=== PATIENT | male | born 1975 | race Caucasian/White ===

== ENCOUNTER 2018-12-04 23:31 | Inpatient (IN) | payer OTHER ==
[~2018-12-04] VITALS: Ht 177.8 cm; Wt 93.4 kg
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
--- NOTE | ~2018-12-04 | PROC ---
[address] [address] PROCEDURE REPORT Name: DELBERT ANGUIANO Room: [address] ADM IN M.R.#: [id number] Admission: 12/05/18 Attend Phys: Hellen Johns MD Discharge: Date of : 71 Report #: [id number] THIS REPORT FOR: //name// For GI report, please see the provation report in perceptive 7. By: [id number] Records Staff [facility] /SHANE
[~2018-12-04 23:31] MED LIST: ACETAMINOPHEN-1 EAC1 PO; AMOXICILLIN500 M1 PO; AUGMENTIN 875875 M1 PO; BACTRIM DS TAB1 EACH PO; COMPAZINE10 MG PO; DARVOCET-N 1001 EACH PO; FLEXERIL PO; IBUPROFEN 800800 MG PO; LAXACIN TABLET1 EACH PO; MEDROLDOSEPACK PO; MOBIC7.5 M1 PO; NOHOMEMEDICATIONS; NORCO 5-325 TA1 EACH PO; PERCOCET 5-3251 EACH PO; ROBAXIN 750 MG750 M1 PO; ROBAXIN500 MG PO; STOOL SOFTENER1 EAC2 PO; ZOFRAN4 MG PO; ZPAK PO
[2018-12-04 23:42] VITALS: BP 152/76
[2018-12-05] VITALS (8 sets, daily range): BP systolic 111–164; BP diastolic 71–92
[2018-12-05 00:34] LABS: HEMATOCRIT 22.5 % (42.0-52.0); MCH 17.6 pg (26.0-34.0); MCHC 29.1 g/dL (28.0-37.0); MCV 60.3 fL (80.0-100.0); MPV 8.5 fl. (7.2-11.1); NUCLEATED RBCS 0 /100WBC; PLATELET COUNT* 415 thou/uL (150-400); RBC 3.74 mil/uL (4.50-6.00); RDW-CV 20.6 % (10.5-14.5); WBC 12.4 thou/uL (4.0-11.0)
[2018-12-05 00:37] LABS: HEMOGLOBIN 6.6 gm/dL (14.0-18.0)
[2018-12-05 00:46] LABS: CALCIUM 8.7 mg/dL (8.5-10.1); CREATININE 1.3 mg/dL (0.6-1.3); POTASSIUM 4.1 mmol/L (3.5-5.1)
[2018-12-05 00:51] LABS: ALBUMIN 3.1 g/dL (3.4-5.0); TOTAL BILIRUBIN 0.3 mg/dL (<0.1-1.0); TOTAL PROTEIN 7.4 g/dL (6.4-8.2)
[2018-12-05 01:23] LABS: HEMATOCRIT 22.4 % (42.0-52.0); MCH 17.6 pg (26.0-34.0); MCHC 29.1 g/dL (28.0-37.0); MCV 60.5 fL (80.0-100.0); MPV 8.6 fl. (7.2-11.1); NUCLEATED RBCS 0 /100WBC; PLATELET COUNT* 439 thou/uL (150-400); RBC 3.71 mil/uL (4.50-6.00); RDW-CV 20.8 % (10.5-14.5); WBC 13.6 thou/uL (4.0-11.0)
[2018-12-05 01:27] LABS: HEMOGLOBIN 6.5 gm/dL (14.0-18.0)
[2018-12-05 01:32] LABS: ABSOLUTE EOSINOPHILS 0.2 thou/uL (0.0-0.7); ABSOLUTE LYMPHOCYTES 1.6 thou/uL (0.8-5.3); ABSOLUTE MONOCYTES 1.2 thou/uL (0.0-1.2); ABSOLUTE NEUTROPHILS 9.3 thou/uL (1.6-8.1); ANISOCYTOSIS 2+; HYPOCHROMASIA 3+; MICROCYTES 3+; PLATELET ESTIMATE INCREASED
[2018-12-05 01:33] LABS: OVALOCYTES Occasional
[2018-12-05 02:20] LABS: ABSOLUTE BASOPHILS 0.1 thou/uL (0.0-0.2); ABSOLUTE EOSINOPHILS 0.1 thou/uL (0.0-0.7); ABSOLUTE MONOCYTES 1.1 thou/uL (0.0-1.2); ABSOLUTE NEUTROPHILS 10.2 thou/uL (1.6-8.1)
[2018-12-05 02:21] LABS: ANISOCYTOSIS 2+; HYPOCHROMASIA 3+; MICROCYTES 3+; PLATELET ESTIMATE INCREASED
[2018-12-05 02:22] LABS: OVALOCYTES Occasional
--- NOTE | 2018-12-05 05:09 | NUR ---
PT ARRIVED TO ROOM AT 0400. PT TEARFUL AND ANXIOUS BECAUSE NOT ABLE TO GET AHOLD OF FAMILY AND DOESN'T UNDERSTAND WHAT IS GOING ON. REASSURANCE GIVEN. EXPLAINED ABOUT DVT AND COMPLETE BEDREST. DISCUSSED NPO DUE TO POSS PROCEDURE TODAY. INFORMED OF TRANSFUSION ONCE READY FROM LAB. SEE ADMISSION ASSESSMENT AND HX. TELEMETRY APPLIED SHOWING SR. O2 ON AT 2L/NC. IVF STARTED. WILL CONT TO MONITOR AND ASSIST NEEDED.
[2018-12-05 05:42] LABS: APTT 26.8 Seconds (25.0-31.3); PROTIME 9.9 Seconds (9.20-11.50)
[2018-12-05 10:07] LABS: HEMATOCRIT 24.9 % (42.0-52.0); HEMOGLOBIN 7.6 gm/dL (14.0-18.0); MCH 19.1 pg (26.0-34.0); MCHC 30.4 g/dL (28.0-37.0); MCV 62.9 fL (80.0-100.0); MPV 8.3 fl. (7.2-11.1); RBC 3.96 mil/uL (4.50-6.00); RDW-CV 23.3 % (10.5-14.5); WBC 10.9 thou/uL (4.0-11.0)
--- NOTE | 2018-12-05 14:57 | NUR ---
Pt out of room when CM went to assess, will f/u later
--- NOTE | 2018-12-05 18:45 | NUR ---
PATIENT RESTING IN BED. RIGHT LEG DVT, RIGHT LUNG PE, GI BLEED. PATIENT TO UNDERGO BOWEL PREP TONIGHT FOR EGD/COLONOSCOPY TOMORROW. VITAL SIGNS STABLE. PATIENT RECIEVED 2U PRBC TODAY. PATIENT HAD IVC FILTER PLACEMENT TO DAY. HOURLY ROUNDING COMPLETD FOR PATIENT SAFETY.
[2018-12-05 21:00] LABS: HEMATOCRIT 27.2 % (42.0-52.0); HEMOGLOBIN 8.1 gm/dL (14.0-18.0)
[2018-12-06] VITALS: BP 140/78
[2018-12-06 04:00] VITALS: BP 122/70
--- NOTE | 2018-12-06 06:16 | NUR ---
PT UNABLE TO FINISH BOWEL PREP THROUGH THE NIGHT. VITALS WNL. SEE MAR. SEE CHARTING. FALL PRECAUTIONS IN PLACE. HOURLY ROUNDING FOR SAFETY.
[2018-12-06 08:00] VITALS: BP 124/74
--- NOTE | 2018-12-06 09:24 | CON ---
[address] [address] CONSULTATION Name: DELBERT ANGUIANO Room: [address] IN .R.#: [id number] Admission: 12/05/18 Attend Phys: Hellen Johns MD Discharge: Date of : 71 Report #: [id number] THIS REPORT FOR: //name// CC: LINK physician/PCP Hellen Johns DATE OF SERVICE: 12/05/2018 REASON FOR CONSULTATION: Anemia and DVT. SUBJECTIVE: A 43-year-old male with no past medical history presenting with right ankle swelling and pain behind his right ankle for the last one month. The pain radiates behind his knee. He denies any recent trauma. He had a venous Doppler, which came back positive for noncompressible DVT in the inferior portion of the main femoral vein and popliteal vein. The patient had a CT angiogram later on, which showed multiple scattered PE in the segmental and subsegmental pulmonary artery on the right lung, moderate hiatal hernia. The patient was found to be severely anemic at hemoglobin of 6.6. He was not started on anticoagulation; however, he was given 2 units of PRBC and started on IV iron. He also underwent an IVC filter due to a possible GI bleed and a contraindication to start anticoagulation. The patient is in the preparation to have an EGD and colonoscopy tomorrow. REVIEW OF SYSTEMS: All systems reviewed. It was negative except the above. PAST MEDICAL HISTORY: Skin infection. MEDICATIONS: Per admission list. ALLERGIES: No known allergies. FAMILY HISTORY: Significant of colon cancer, a sister at age of 45. SOCIAL HISTORY: He smokes every day, half a pack for the last 12 years. PHYSICAL EXAMINATION: VITAL SIGNS: Temperature is 36.9, pulse 86, respirations 18, blood pressure is 136/86, SpO2 is 98% on 2 liters. GENERAL: The patient was lying in bed. He was not in acute distress. LUNGS: Decreased breathing sounds bilaterally. HEART: Regular rate and rhythm. S1, S2 within normal limits. ABDOMEN: Soft, nontender, nondistended, bowel sounds positive. EXTREMITIES: +1 edema bilaterally. LABORATORY DATA: Today, WBC is 10.9, hemoglobin 7.6, MCV 62.9, platelets 400, [place] [address] CONSULTATION Name: DELBERT ANGUIANO Room: [address] IN [facility]#: [id number] Admission: 12/05/18 Attend Phys: Hellen Johns MD Discharge: Date of : 71 Report #: [id number] +3 microcytosis, ovalocyte and creatinine is 1.3. Iron is 12, TIBC 417, saturation 3%. IMAGING: As mentioned above. ASSESSMENT AND PLAN: A 43-year-old male was evaluated because of acute deep vein thrombosis and pulmonary embolism. However, he had a severe microcytic anemia consistent with a probable gastrointestinal bleed. RECOMMENDATION: 1. I agree with holding anticoagulation. He is currently IVC filter; however, I would like to wait for his EGD and colonoscopy. If there is no active bleeding at that point, I would recommend to start the patient on anticoagulation with heparin. 2. We will obtain serum iron level and hemoglobin electrophoresis. 3. Significant family history of colon cancer. Definitely, he is at risk of GI malignancy. We will follow up on his EGD and colonoscopy. Definitely, the patient will need a CT of the abdomen, which I would like to order to be done. <ELECTRONICALLY SIGNED> By: Lamberto Carr MD 12/06/18 0924 1713 [id number] Carr MD /nt
[2018-12-06 14:08] LABS: HEMATOCRIT 28.5 % (42.0-52.0); HEMOGLOBIN 8.4 gm/dL (14.0-18.0); MCH 19.2 pg (26.0-34.0); MCHC 29.7 g/dL (28.0-37.0); MCV 64.8 fL (80.0-100.0); MPV 8.5 fl. (7.2-11.1); RBC 4.39 mil/uL (4.50-6.00); RDW-CV 26.9 % (10.5-14.5)
[2018-12-06 14:19] LABS: CALCIUM 8.5 mg/dL (8.5-10.1); CREATININE 1.1 mg/dL (0.6-1.3); POTASSIUM 3.9 mmol/L (3.5-5.1)
[2018-12-06 14:44] VITALS: BP 131/75
--- NOTE | 2018-12-06 15:13 | NUR ---
Pt is A&O. Resides at home with his kids. Normally active and independent. No DME. No hx of HH or SNF. Goal is home at dc. DC product planner to give Pt a non-insured packet. Following for disposition.
--- NOTE | 2018-12-06 17:01 | EKG ---
[place] [address] ELECTROCARDIOGRAM REPORT Name: DELBERT ANGUIANO Room: [address] ADM IN M.R.#: [id number] Admission: 12/05/18 Attend Phys: Hellen Johns MD Discharge: Date of : 71 Report #: [id number] THIS REPORT FOR: //name// [facility] Test Date: 2018-12-06 Test Time: 08:29:45 Pat Name: DELBERT ANGUIANO Department: Room: [address] Gender: M Pourer Metal: : 1975 Requested By: Brian Ureña Order Number: [id number] Loretta MD: Shai Hoffman Measurements Intervals [place] Rate: 84 P: 48 ME: 166 QRS: 56 QRSD: 92 T: 54 QT: 354 QTc: 419 Interpretive Statements Sinus rhythm Compared to ECG 05/17/2017 03:32:18 No significant changes Electronically Signed On 12-06-2018 17:01:44 MAIL PROCESSING ASSOCIATE by Shai Hoffman [email or web address] <ELECTRONICALLY SIGNED> By: Shai Hoffman MD, [facility] 12/06/18 1701 0829 8 Shai Hoffman MD, FACC /EPI
--- NOTE | 2018-12-06 19:03 | NUR ---
CHARLEY RESTING IN BED. VITAL SIGNS STABLE ANDCHARLEY HAS COMPLETED HIS COLONOSCOPY AND EGD TODAY. HOURLY ROUNDING COMPLETED FOR PATIENT SAFETY.
[2018-12-06 19:40] VITALS: BP 145/75
[2018-12-07] VITALS (7 sets, daily range): BP systolic 115–141; BP diastolic 65–90
[2018-12-07 05:16] LABS: HEMOGLOBIN 8.3 gm/dL (14.0-18.0); MCH 19.9 pg (26.0-34.0); MCHC 30.6 g/dL (28.0-37.0); MCV 65.2 fL (80.0-100.0); MPV 8.7 fl. (7.2-11.1); RBC 4.15 mil/uL (4.50-6.00); RDW-CV 27.3 % (10.5-14.5); WBC 17.5 thou/uL (4.0-11.0)
--- NOTE | 2018-12-07 05:26 | NUR ---
VITALS WNL. SEE MAR. SEE CHARTING. FALL PRECAUTIONS IN PLACE. HOURLY ROUNDING FOR SAFETY.
[2018-12-07 05:39] LABS: CALCIUM 8.2 mg/dL (8.5-10.1); CREATININE 1.1 mg/dL (0.6-1.3); POTASSIUM 3.8 mmol/L (3.5-5.1)
[2018-12-07 14:12] LABS: HGB SOLUBILITY Negative (Negative)
--- NOTE | 2018-12-07 18:46 | NUR ---
PATIENT RESTIN GI NBED. HEPARIN INFUSION AT 1395 U/HR THRU LEFT FOREARM IV. IV FLUIDS. PATIE T AOX4. UP TO BSC COMMODE ONLY AND UTINAL USAGE. PATIENT EDUCATED CONTINUOUSLY TODAY R/T DVT, PE, AND POSSIBLE GI BLEED.PATINET AGREED TO IV HEPARIN AND INITIATION OF WARFARIN. VITAL SIGNS STABLE AND PATIENT IN NOAPPARNET DISTRESS AT THIS TIME. HOURLY ROUNDING COMPLETED FOR PATIENT SAFETY.
[2018-12-08] VITALS (7 sets, daily range): BP systolic 129–156; BP diastolic 70–92
[2018-12-08 05:07] LABS: HEMATOCRIT 27.4 % (42.0-52.0); HEMOGLOBIN 8.3 gm/dL (14.0-18.0); MCH 19.9 pg (26.0-34.0); MCHC 30.2 g/dL (28.0-37.0); MCV 65.9 fL (80.0-100.0); MPV 8.6 fl. (7.2-11.1); RBC 4.16 mil/uL (4.50-6.00); RDW-CV 27.1 % (10.5-14.5); WBC 12.8 thou/uL (4.0-11.0)
[2018-12-08 05:16] LABS: PROTIME 10.2 Seconds (9.20-11.50)
[2018-12-08 05:21] LABS: APTT 53.4 Seconds (25.0-31.3)
[2018-12-08 05:36] LABS: URINE BILIRUBIN NEGATIVE (Negative); URINE BLOOD NEGATIVE (Negative); URINE CLARITY CLEAR; URINE COLOR YELLOW; URINE GLUCOSE-RANDOM NEGATIVE (Negative); URINE KETONES NEGATIVE (Negative); URINE LEUKOCYTES-REFLEX NEGATIVE (Negative); URINE NITRITE-REFLEX NEGATIVE (Negative); URINE PROTEIN NEGATIVE (Negative); URINE UROBILINOGEN 0.2 E.U./dl (0.2-1.0)
--- NOTE | 2018-12-08 08:26 | NUR ---
PT IS ABLE TO COMMUNICATE HIS NEEDS TO STAFF EFFECTIVELY. HE HAS DENIED THE NEED FOR PAIN MEDICATION UP TO THIS TIME. HEPARIN GTT MAINTAINED UP TO THIS TIME.
--- NOTE | 2018-12-08 09:25 | NUR ---
Spoke with regarding Pt not having health insurance and need for anticoag at [place]. Plan to switch Pt to Xarelto. CM will provide Pt with a 30 day free card, will ask Cardiology for samples and will complete [employer] Rx prescription assistance application with Pt. Pt will discuss safety net clinic info and will schedule an appt for Pt after discussion. Following.
--- NOTE | 2018-12-08 12:14 | NUR ---
Pt and signed Rx assistance [employer], CM will fax to [employer] f: . Pt requested that CM set up and appt for him at [facility], CM will call and make appointment.
[2018-12-09 04:00] VITALS: BP 133/86
[2018-12-09 04:35] LABS: HEMATOCRIT 28.6 % (42.0-52.0); HEMOGLOBIN 8.5 gm/dL (14.0-18.0); MCHC 29.8 g/dL (28.0-37.0); MCV 67.1 fL (80.0-100.0); MPV 8.5 fl. (7.2-11.1); RBC 4.27 mil/uL (4.50-6.00); RDW-CV 27.5 % (10.5-14.5); WBC 13.2 thou/uL (4.0-11.0)
[2018-12-09 04:43] LABS: PROTIME 10.7 Seconds (9.20-11.50)
[2018-12-09 04:45] LABS: CALCIUM 8.5 mg/dL (8.5-10.1); CREATININE 1.2 mg/dL (0.6-1.3); MAGNESIUM 2.1 mg/dL (1.8-2.4); POTASSIUM 3.9 mmol/L (3.5-5.1)
--- NOTE | 2018-12-09 05:58 | NUR ---
ASSUMED PT CARE AT 1930, PT IS A&OX4, PT IS TRACING NSR ON THE MONTIOR, ON RA SATTING MID TO HIGH 90'S. PT DENIES ANY PAIN OR NEEDS MAT THIS TIME. JUST VOICED "WANTING TO GO HOME" PT HAS IVF INFUSING PER MAR. HEPARIN PLACED ON HOLD BY DAY RN FOR ONE HOUR D/T ELEVATED APTT, PO XARLETO GIVEN BY THIS RN AND THE END OF HOUR HOLD FOR HEAPRIN. HEPARIN GTT WAS NOT RESTARTED. PT IS UP AD [place] IN HIS ROOM. BED IN LOW POSITION, CALL LIGHT IN REACH. HOURLY ROUDNING COMPLETED FOR PT SAFETY.
[2018-12-09 08:15] VITALS: BP 123/71
[2018-12-09] MEDS ORDERED: XARELTO15 MG PO (12:08)
[2018-12-09] MEDS ORDERED: XARELTO20 MG PO (12:08)
[2018-12-09] MEDS ORDERED: PROTONIX40 M2 PO (12:15)
[2018-12-09 12:34] VITALS: BP 151/84
--- NOTE | 2018-12-09 13:23 | NUR ---
Pt discharging to home today, provided Pt with Xarelto 30 day free card and informed of appt on Wednesday. Pt is not being followed by cardiology, so is not able to receive samples. Updated Dr Johns. Informed Pt to discuss with ENTERPRISE APPLICATION DEVELOPER at his appt on Wednesday. Pt is anxiously awaiting dc. Following.
--- NOTE | 2018-12-09 13:59 | NUR ---
ASSUMED CARE OF PATIENT AT APPROX 0900. ALERT AND ORWEINTED X4. ASSESSMENT COMPLETED BY PREVIOUS NURSE, THIS NURSE AGREES WITH CHARTING. NO COMPLAINTS TO THIS NURSE OF PAIN, NAUSE, OR SOA. FLUIDS INFUSED ORDERED. PATIENT DISCHARGED AT 1345 WITH PRESCRIPTIONS AND DISCHARGE ORDERS. PATIENT ASKED IF HE COULD LEAVE HIS BLANKET AND PILLOW HERE, BAGGED THEM UP AND SENT THEM TO SECURITY.
== END 2018-12-09 14:00 | disposition home or self-care (01) | DRG 356 ==
LOC: M.ERS 23:31 → M.2W 12-05 03:29 → M.TBA-ER 12-05 03:29 → M.ERS 12-05 03:51 → M.2W 12-05 04:00
PROVIDERS: Emergency Medicine; Family Medicine; Internal Medicine; Nurse Practitioner Family; ADMIT Internal Medicine
PROC: B5191ZZ Fluoroscopy of Inferior Vena Cava using Low Osmolar Contrast (ICD-10-PCS; principal; 2018-12-05)
PROC: 30233N1 Transfusion of Nonautologous Red Blood Cells into Peripheral Vein, Percutaneous Approach (ICD-10-PCS; principal; 2018-12-05)
PROC: 06H03DZ Insertion of Intraluminal Device into Inferior Vena Cava, Percutaneous Approach (ICD-10-PCS; principal; 2018-12-05)
PROC: 0DJD8ZZ Inspection of Lower Intestinal Tract, Via Natural or Artificial Opening Endoscopic (ICD-10-PCS; 2018-12-06)
PROC: 0DJ08ZZ Inspection of Upper Intestinal Tract, Via Natural or Artificial Opening Endoscopic (ICD-10-PCS; 2018-12-06)
DX: K92.2 Gastrointestinal hemorrhage, unspecified (principal); I26.99 Other pulmonary embolism without acute cor pulmonale; I82.411 Acute embolism and thrombosis of right femoral vein; D50.9 Iron deficiency anemia, unspecified; K21.0 Gastro-esophageal reflux disease with esophagitis; F12.90 Cannabis use, unspecified, uncomplicated; F17.210 Nicotine dependence, cigarettes, uncomplicated; K44.9 Diaphragmatic hernia without obstruction or gangrene; Z79.01 Long term (current) use of anticoagulants; Z79.899 Other long term (current) drug therapy; Z80.0 Family history of malignant neoplasm of digestive organs; Z28.21 Immunization not carried out because of patient refusal

== ENCOUNTER 2020-02-07 17:44 | Emergency (ER) | payer OTHER ==
[~2020-02-07] VITALS: Ht 177.8 cm; Wt 90.7 kg
[~2020-02-07 17:44] MED LIST changes: +PROTONIX40 M2 PO; +XARELTO15 MG PO; +XARELTO20 MG PO
[2020-02-07] MEDS ORDERED: IRON325 M1 PO (17:54)
[2020-02-07] MEDS ORDERED: MIRALAX119 GM PO (17:54)
[2020-02-07] MEDS ORDERED: COLACE100 MG PO (17:54)
[2020-02-07] MEDS ORDERED: VITAMIN B-12100 MC1 PO (17:54)
[2020-02-07] MEDS ORDERED: KEFLEX500 M1 PO (18:52)
[2020-02-07 19:07] VITALS: BP 148/69
== END 2020-02-07 19:07 | disposition short-term general hospital (02) ==
LOC: M.ERS 17:44
DX: S61.212A Laceration without foreign body of right middle finger without damage to nail, initial encounter (principal); F17.210 Nicotine dependence, cigarettes, uncomplicated; W26.8XXA Contact with other sharp object(s), not elsewhere classified, initial encounter; Y93.89 Activity, other specified; Y92.89 Other specified places as the place of occurrence of the external cause; Y99.8 Other external cause status